=== PATIENT | female | born 1940 | race Caucasian/White ===

== ENCOUNTER → 2017-08-11 | Outpatient (CLI) | payer MEDICARE, OTHER ==
[~2017-08-11] MED LIST: BIOT250012 PO; CALC-852 PO; CALCIUM; CAR200 PO; CARB-91 PO; ESTR10TA4 VG; FISH OIL; FLU60SYR30 IM ONLY; GLUCOSAMINE; HYDROCHLOROTHIAZIDE; LACT1CAP6 PO; LEVO750T44 PO; METF-1 PO; METF-410 PO; MULT1CAP41 PO; OMEG-11 PO; ONDA4TAB97 PO; PNEU0.5D3 IM; RED600CA15 PO; SULF-198 PO; TEGRETOL; VITAMIN D
--- NOTE | 2017-08-12 09:57 | RADIOLOGY IMAGING REPORT ---
FACILITY: [facility] PATIENT NAME: Sandra Dean : 1940 MR: [id number] V: [id number] EXAM DATE: ORDERING PHYSICIAN: CASTILLO BAILEY TECHNOLOGIST: Location: [facility] Patient: Sandra Dean : 1940 Visit/Account:[id number] Date of Sevice: 08/11/2017 EXAMINATION: Bilateral carotid ultrasound with Doppler 08/11/2017 3:00 PM HISTORY: Ischemic optic neuropathy COMPARISON: None FINDINGS: Grayscale, color, and duplex imaging of the carotid circulation was performed on each side. Atherosclerotic plaque: There is some age expected mild intimal thickening. More focal plaque is see n along the bulb and proximal ICA on the right. Doppler waveforms: Sharp systolic upstrokes bilaterally. There is some ICA spectral broadening more on the right than the left. Vertebral flow direction: antegrade bilaterally Systolic/diastolic velocities below are measured in centimeters per second. Right side: Proximal CCA: 105/16 Mid CCA: 139/20 Distal CCA: 97/18 Carotid bulb: 133/22 Proximal ICA: 113/30 Mid ICA: 73/20 Distal ICA: 83/23 ECA: 215/3 ICA/CCA ratio: 0.81 Left side: Proximal CCA: 96/14 Mid CCA: 122/20 Distal CCA: 94/17 Carotid bulb: 106/24 Proximal ICA: 71/26 Mid ICA: 72/21 Distal ICA: 112/36 ECA: 71/1 ICA/CCA ratio: 0.92 IMPRESSION: 1. Right side: Carotid bulb and proximal ICA atherosclerosis. Probably about 50% ICA stenosis. The re is also more significant but still moderate ECA stenosis. 2. Left side: Mild carotid atherosclerosis. No significant stenosis. Carotid % stenosis: Velocity criteria are extrapolated from diameter data as defined by the Society o f Radi[employer] in Ultrasound Consensus Conference, Radiology 2003; 229; 340-346 Report Dictated By: Vlad Trivedi MD at 08/12/2017 9:10 AM Report E-Signed By: Vlad Trivedi MD at 08/12/2017 9:18 AM WSN:[email or web address]
== END ==
LOC: US 00:36
PROVIDERS: ATTEND Technician/Technologist Ophthalmic
DX: I65.21 Occlusion and stenosis of right carotid artery (principal)
CPT/HCPCS: 93880

== ENCOUNTER → 2017-09-15 | Outpatient (CLI) | payer MEDICARE, OTHER ==
[~2017-09-15] MED LIST changes: +ASPI81TA94 PO; +ERGO500037 PO; +TRIA15OI20 TP
[2017-09-15 10:20] LABS: PLATELET COUNT, AUTOMATED 290 K/uL (150-450)
[2017-09-15 10:33] LABS: LDL CHOLESTEROL 135 mg/dl
== END ==
LOC: LAB 09:55
PROVIDERS: ATTEND Nurse Practitioner Primary Care
DX: E11.9 Type 2 diabetes mellitus without complications (principal); E78.00 Pure hypercholesterolemia, unspecified; E55.9 Vitamin D deficiency, unspecified; R20.2 Paresthesia of skin
CPT/HCPCS: 36415; 82040; 82247; 82306; 82310; 82374; 82435; 82465; 82565; 82607; 82746; 82947; 83036; 83718; 84075; 84132; 84155; 84295; 84443; 84450; 84460; 84478; 84520; 85025

== ENCOUNTER → 2018-08-29 | Outpatient (CLI) | payer MEDICARE, OTHER ==
[~2018-08-29] MED LIST changes: +BENZ200C15 PO; -METF-410 PO; +METF-450 PO; +PRED20TA6 PO
--- NOTE | 2018-08-29 13:24 | RADIOLOGY IMAGING REPORT ---
FACILITY: [facility] [place] PATIENT NAME: Sandra Dean : 1940 MR: [id number] V: [id number] EXAM DATE: ORDERING PHYSICIAN: SARWAT LAU TECHNOLOGIST: Location: [facility] [place] Patient: Sandra Dean : 1940 Visit/Account:[id number] Date of Sevice: 08/29/2018 Exam type: CHEST PA LAT History: Cough x4 weeks, worsening over past 3-4 days Comparison: 06/30/2010. Findings: Lungs are hyperinflated with prominent interstitial markings. Patient may have underlying emphysema. No focal infiltrate, pleural effusion or pneumothorax. Heart size is enlarged. The osseous structures demonstrate degenerative changes. IMPRESSION: 1. Pulmonary hyperinflation but no acute cardiopulmonary disease. Report Dictated By: Shubham Jin MD at 08/29/2018 1:18 PM Report E-Signed By: Shubham Jin MD at 08/29/2018 1:19 PM WSN:[email or web address]
== END ==
LOC: RAD 12:18
PROVIDERS: ATTEND Nurse Practitioner Primary Care
DX: R91.8 Other nonspecific abnormal finding of lung field (principal)

== ENCOUNTER → 2018-10-10 | Outpatient (CLI) | payer MEDICARE, OTHER ==
[~2018-10-10] MED LIST changes: +CHOL200074 PO; +CHOL500025 PO; +CYAN100088 PO; +METF500T4 PO; +PRAV40TA78 PO
[2018-10-10 11:57] LABS: PLATELET COUNT, AUTOMATED 276 K/uL (150-450)
[2018-10-10 12:58] LABS: LDL CHOLESTEROL 139 mg/dl
== END ==
LOC: LAB 11:20
PROVIDERS: ATTEND Internal Medicine
DX: G50.0 Trigeminal neuralgia (principal); E11.9 Type 2 diabetes mellitus without complications; E78.5 Hyperlipidemia, unspecified; E53.8 Deficiency of other specified B group vitamins; E55.9 Vitamin D deficiency, unspecified
CPT/HCPCS: 36415; 81001; 82040; 82043; 82247; 82306; 82310; 82374; 82435; 82465; 82565; 82607; 82947; 83036; 83718; 84075; 84132; 84155; 84295; 84450; 84460; 84478; 84520; 85025

== ENCOUNTER → 2019-01-24 | Outpatient (CLI) | payer MEDICARE, OTHER ==
[2019-01-24 14:16] LABS: LDL CHOLESTEROL 118 mg/dl
== END ==
LOC: LAB 11:50
PROVIDERS: ATTEND Family Medicine
DX: E11.65 Type 2 diabetes mellitus with hyperglycemia (principal); E78.5 Hyperlipidemia, unspecified
CPT/HCPCS: 36415; 82040; 82043; 82247; 82310; 82374; 82435; 82465; 82565; 82947; 83036; 83718; 84075; 84132; 84155; 84295; 84450; 84460; 84478; 84520